=== PATIENT | male | born 1945 | race Caucasian/White ===

== ENCOUNTER 2020-07-21 22:10 | Emergency (ER) | payer MEDICARE, OTHER ==
[~2020-07-21] VITALS: Ht 160 cm; Wt 66.7 kg
[2020-07-21] MEDS ORDERED: REGULAR INSULIN (22:26)
[2020-07-21] MEDS ORDERED: ATOR20TA27 PO (22:26)
[2020-07-21] MEDS ORDERED: WARF5TAB PO (22:26)
[2020-07-21] MEDS ORDERED: METF-442 PO (22:26)
[2020-07-21] MEDS ORDERED: ASPI81TA31 PO (22:26)
--- NOTE | 2020-07-21 22:40 | NUR ---
Dr. Jade at bedside for MSE.
--- NOTE | 2020-07-21 22:56 | NUR ---
Xray at bedside.
[2020-07-21 23:33] LABS: BASOPHILS % (AUTO) 0.7 % (0.0-2.0); EOSINOPHILS # (AUTO) 0.1 K/uL (0.0-0.7); EOSINOPHILS % (AUTO) 1.5 % (0.0-7.0); HEMATOCRIT 40.8 % (36.7-47.1); HEMOGLOBIN 13.8 g/dL (12.5-16.3); LYMPHOCYTES # (AUTO) 1.3 K/uL (20.0-40.0); LYMPHOCYTES % (AUTO) 19.9 % (20.5-51.5); MEAN CORPUSCULAR HGB CONC 34 g/dL (32.5-36.3); MEAN CORPUSCULAR VOLUME 91.4 fL (73.0-96.2); MONOCYTES # (AUTO) 0.8 K/uL (2.0-10.0); MONOCYTES % (AUTO) 11.9 % (0.0-11.0); NEUTROPHILS # (AUTO) 4.2 K/uL (1.8-8.9); PLATELET COUNT (AUTO) 212 K/uL (152-348); RED BLOOD CELL COUNT(AUTO) 4.46 MIL/uL (4.06-5.63); WHITE BLOOD COUNT (AUTO) 6.3 K/uL (3.6-10.2)
[2020-07-21 23:41] LABS: POTASSIUM 4.3 mmol/L (3.5-5.1)
--- NOTE | 2020-07-22 00:33 | NUR ---
Patient discharged to home in stable condition. Written and verbal after care instructions given. Patient verbalizes understanding of instructions. Stressed follow up or return to ER for worsening s/s. Patient out of ER via wheelchair, provided with crutches, gait training provided, assisted patient on transfer to vehicle, no falls noted, no acute signs of distress, VSS, all belongings taken, provided with CD and copies of diagnostics, pt to be driven home by daughter via private vehicle.
[2020-07-22 00:36] VITALS: BP 100/60
== END 2020-07-22 00:37 | disposition home or self-care (01) ==
LOC: ER 22:14
DX: S82.831A Other fracture of upper and lower end of right fibula, initial encounter for closed fracture (principal); W18.09XA Striking against other object with subsequent fall, initial encounter; Y92.89 Other specified places as the place of occurrence of the external cause; Z79.01 Long term (current) use of anticoagulants; Z95.2 Presence of prosthetic heart valve; E78.5 Hyperlipidemia, unspecified; E11.9 Type 2 diabetes mellitus without complications; Z79.899 Other long term (current) drug therapy
CPT/HCPCS: 36415; 73590; 73610; 73630; 85025; 85610; 85730; A4663